=== PATIENT | male | born 1955 | race Caucasian/White ===

== ENCOUNTER → 2018-03-16 | Outpatient (CLI) | payer BC | END | disposition home or self-care (01) | LOC: C.PATHSPEC 17:53 | DX: L85.9 Epidermal thickening, unspecified (principal); K13.21 Leukoplakia of oral mucosa, including tongue ==

== ENCOUNTER 2018-04-14 07:48 | Emergency (ER) | payer BC ==
[~2018-04-14] VITALS: Ht 180.3 cm; Wt 104.6 kg
[2018-04-14 07:51] VITALS: TEMP 37.2; Ht 180.3 cm; Wt 104.6 kg
[2018-04-14] MEDS ORDERED: OXYCODONE HCL IR 5 MG TAB (IMMEDIATE RELEASE) PO STA (08:18)
--- NOTE | 2018-04-14 08:27 | EMERGENCY ROOM VISIT NOTE ---
History First contact with patient: 07:56 Chief Complaint: ARM PAIN Stated Complaint: UPPER RIGHT ARM PAIN History of Present Illness The patient is a 62 year old male who presents to the Emergency Room via private vehicle, by female with complaints of "upper right arm pain". The patient states that he began with pain in the right upper arm Thursday after he was moving chairs. He states that the pain has increased since that time. He now notes that he has difficulty moving his shoulder secondary to the pain. He rates the overall pain numerically is a 6/10. There is no chest pain or shortness of breath. There are no exertional symptoms he is able to walk and go up stairs without any difficulty. He notes that it is strictly in the right shoulder with movements of the arm. He has full strength in the hand and elbow but notes when he goes to lift at the location of the right shoulder he experiences a great deal of pain. He has never had this before. He notes that he is otherwise active. Review of Systems A complete 10-point Review of Systems was discussed with the patient, with pertinent positives and negatives listed in the History of Present Illness. All remaining Review of Systems questions can be considered negative unless otherwise specified. Past Medical/Surgical History No pertinent Family History No pertinent Social History Smoking Status: Never Smoker Pt. lives locally Current/Historical Medications Scheduled Aspirin (Aspirin Chewable), 81 MG PO DAILY Atorvastatin (Lipitor), 1 TAB PO DAILY Ibuprofen-Diphenhydramine Hcl (Advil Pm), 1 TAB PO prn Mometasone Furoate (Nasal) (Mometasone Furoate), 1 SPRAY NA prn Scheduled PRN Oxycodone Ir (Roxicodone Ir), 1 TAB PO Q4H PRN for Pain Miscellaneous Medications Fish Oil (Glasco-3), 1 CAP PO Prednisone (Prednisone), 1 TAB PO Physical Exam Vital Signs Date Time Temp Pulse Resp B/P (MAP) Pulse Ox O2 Delivery O2 Flow Rate FiO2 04/14/18 09:18 73 16 139/85 94 Room Air 04/14/18 07:51 37.2 83 18 134/83 95 Room Air Physical Exam VITAL SIGNS - Vital signs and nursing notes were reviewed. Stable. Afebrile. GENERAL -62-year-old female appearing her stated age who is in no acute distress. Communicates well with provider and answers questions appropriately. SKIN - Without rashes. No meningeal or petechial rash. HEAD - NC/AT. EYES - PERRL with EOMI bilaterally. Sclera anicteric. EARS - No deformities of external structures noted on gross examination bilaterally. NOSE - Midline and without cyanosis. No epistaxis or purulent drainage noted. MOUTH/OROPHARYNX - Without perioral cyanosis. NECK - Neck with FROM. Supple to palpation. No lymphadenopathy noted. No nuchal rigidity. LUNGS - Chest wall symmetric without accessory muscle use, intercostals retractions, or central cyanosis. Normal vesicular breath sounds CTA B/L. No wheezes, rales, or rhonchi appreciated. CARDIAC - RRR with S1/S2. No murmur, rubs, or gallops appreciated. ABDOMEN - Abdominal contour normal without pulsations or visible masses. BS normoactive all four quadrants. No tenderness, palpable masses, hepatosplenomegaly, or ascites noted. EXTREMITIES - No clubbing or peripheral cyanosis. No pretibial edema present. There is minimal tenderness to palpation overlying the right anterior shoulder joint. Full strength and range of motion of the right hand, right wrist and right elbow. Patient has difficulty with abduction at the right shoulder secondary to pain directly into the right shoulder and in the deltoid region. There is no chest pain or shortness of breath. +5/5 strength noted in UE/LE bilaterally. NEUROLOGIC - Cranial nerves II through XII grossly intact. Sensory intact to light touch throughout. PSYCH - A&O, and cooperates fully with examiner. Pt is very pleasant and interacts well with examiner. Medical Decision & Procedures ER Provider Diagnostic Interpretation: R SHOULDER MIN 2 VIEWS ROUTINE HISTORY: 62 years-old Male R shoulder pain acute right shoulder pain COMPARISON: None available TECHNIQUE: 3 views of the right shoulder FINDINGS: Calcific tendinosis about the rotator cuff with calcifications measuring up to 9 mm, possibly within the infraspinatus. Mild glenohumeral and AC joint osteoarthritis. No acute fracture or dislocation. IMPRESSION: 1. Mild degenerative changes of the glenohumeral and AC joints without acute fracture or dislocation. 2. 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 The above report was generated using voice recognition software. It may contain grammatical, syntax or spelling errors. Electronically signed by: Keshav Costa M.D. 04/14/2018 8:33 AM Dictated Date/Time: 04/14/2018 8:28 AM Medications Administered Medications (Trade) Dose Ordered Sig/Daksha Route Start Time Stop Time Status Last Admin Dose Admin Oxycodone HCl (Roxicodone Immediate Rel Tab) 5 mg NOW STAT PO 04/14/18 08:18 04/14/18 08:19 DC 04/14/18 08:36 5 MG Medical Decision Patient was seen and evaluated as above in room B8. Review was performed of nursing notes and vital signs. After obtaining a thorough history and physical examination the above work up was performed he presents to us today with pain in his right shoulder. He is nontoxic on examination. No evidence of [place] or PE. This is localized to the right shoulder itself and is worse with range of motion of this region. He was given ice packs, oxycodone for pain as well as shoulder x-rays were obtained. Results as above. I agree with radiologist findings. I believe he is experiencing calcific tendinitis. I recommend follow -up with orthopedics, gentle range of motion and NSAIDs. Benefit versus risk of providing arm sling was discussed. He would like something for supporting the arm. I informed him that he should not wear this for much time as it will likely worsen his symptoms. He verbalized understanding. He is only to wear it for severe pain. I recommend he take the arm sling every hour to perform gentle range of motion exercises. For severe pain he will be given oxycodone immediate release. Benefit versus risk discussed with the patient. No red flags in the [place] drug monitoring system. The patient was educated upon management, educated upon todays findings/results, educated upon symptoms in which to return, had questions answered prior to discharge, and was discharged home in good condition. In the evaluation and treatment of this patient, the following differential diagnoses were considered: Shoulder Contusion, Shoulder Fracture, Shoulder Dislocation, Thoracic Outlet Syndrome, Adhesive Capsulitis, Rotator Cuff Tear, Proximal Clavicle Head Fracture, Apical Pneumonia, Pneumothorax, Hemothorax, or TB. Impression Primary Impression: Calcific tendinitis of right shoulder Departure Information Dispostion Home / Self-Care Condition GOOD Prescriptions Oxycodone Ir (Roxicodone Ir) 5 Mg Tab 1 TAB PO Q4H Y for Pain, #15 TAB For Initial Treatment Prov: Chava Boggs, RLIEY 04/14/18 Referrals Gualberto Colón M.D. (PCP) Mandeep Kahn D.O. Patient Instructions My [facility] Additional Instructions You have been treated in the Emergency Department for Shoulder Pain. ]You have received pain medicine in the emergency department which impairs your ability to operate a vehicle. It is illegal for you to drive after receiving these medicines. You have been prescribed Oxy IR to be used for pain control. This is a narcotic medication. You cannot drive or consume alcohol while on this medicine. This medicine should only be used for pain that cannot be controlled with over-the- counter pain medicines. For pain control, you can use the following mlyv-[id number]-folewji medicines (if >12 yo): - Regular strength (325mg/tab) Tylenol (acetaminophen) 2 tabs every 4-6 hours as needed. Do not exceed 12 tablets in a 24 hour period. Avoid taking more than 3 grams (3000 mg) of Tylenol per day. This includes any other sources of acetaminophen you may take on a regular basis. - Regular strength (200 mg/tab) Advil (ibuprofen) 1-2 tabs every 4-6 hours as needed. Do not exceed a dose of 3200 mg per day. If this is a recent injury (<24 hrs), ice can be applied to the area of pain for the first 3 days to help decrease pain and inflammation. You have been provided the number for an Orthopaedic Surgeon. You should call this number as soon as possible to establish a follow-up visit from today's Emergency Department visit. You may wear the shoulder sling sparingly. Please be careful that your pain and shoulder condition may worsen by use of this. Continue to perform range of motion exercises several times per day to help prevent the development of a "frozen shoulder". Return to the Emergency Department if your current symptoms worsen despite treatment course outlined above, or if you develop any of the following symptoms : intractable pain despite aforementioned treatment course or new onset of numbness or tingling of the arm.
[2018-04-14] MEDS ORDERED: ATOR-24 PO (08:28)
[2018-04-14] MEDS ORDERED: PRED10PA3 PO (08:28)
[2018-04-14] MEDS ORDERED: ASPCH81X PO (08:28)
[2018-04-14] MEDS ORDERED: IBUP1CAP30 PO (08:28)
[2018-04-14] MEDS ORDERED: OMEG10007 PO (08:28)
[2018-04-14] MEDS ORDERED: MOME6000 (08:28)
--- NOTE | 2018-04-14 08:34 | DIAGNOSTIC IMAGING REPORT ---
R SHOULDER MIN 2 VIEWS ROUTINE HISTORY: 62 years-old Male R shoulder pain acute right shoulder pain COMPARISON: None available TECHNIQUE: 3 views of the right shoulder FINDINGS: Calcific tendinosis about the rotator cuff with calcifications measuring up to 9 mm, possibly within the infraspinatus. Mild glenohumeral and AC joint osteoarthritis. No acute fracture or dislocation. IMPRESSION: 1. Mild degenerative changes of the glenohumeral and AC joints without acute fracture or dislocation. 2. 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 The above report was generated using voice recognition software. It may contain grammatical, syntax or spelling errors. Electronically signed by: Keshav Costa M.D. 04/14/2018 8:33 AM Dictated Date/Time: 04/14/2018 8:28 AM
[2018-04-14 09:18] VITALS: BP 139/85; PULSE 73; O2SAT 94
[2018-04-14] MEDS ORDERED: OXYC-90 PO (09:33)
== END 2018-04-14 09:46 | disposition home or self-care (01) ==
LOC: C.EDB 07:49
DX: M75.31 Calcific tendinitis of right shoulder (principal); Z79.82 Long term (current) use of aspirin; Z79.899 Other long term (current) drug therapy

== ENCOUNTER 2023-04-23 12:41 | Observation (INO) ==
--- NOTE | 2023-04-23 13:29 | Emergency Department Note ---
Impression & Plan Facial cellulitis ED Provider Note HISTORY OF PRESENT ILLNESS: Patient is a 63-year-old male presenting with left submandibular pain and swelling. Patient reports for the last 3 days has been having progressively worsening pain and swelling to the left submandibular region. He has a history of squamous cell carcinoma of the tongue. He denies any measured fevers at home, but reports that today he had subjective fevers and chills. His PCP sent him to the ER for further evaluation. Patient reports it hurts to swallow. Denies any halitosis or foul taste in his mouth. Denies any chest pain or shortness of breath. ROS: as above PHYSICAL EXAM: Constitutional: Patient appears in no acute distress. HENT: Head: Normocephalic and atraumatic. Eyes: EOMI, PERRL Mouth/Throat: Mucous membranes moist. Uvula midline. No elevation of the tongue or protrusion of the tongue. Sublingual region is not swollen or tender to palpation. Neck: Trachea midline. Neck supple. Patient has swelling and tenderness to palpation to the submandibular region. Cardiovascular: RRR, No murmurs, rubs or gallops. Intact distal pulses. Pulmonary/Chest: No respiratory distress. Breath sounds clear and equal bilaterally. No wheezes or rales. Abdominal: Abdomen soft, no tenderness, rebound or guarding. Musculoskeletal: No edema, tenderness or deformity noted. Skin: Warm and dry. No rash, erythema, pallor or cyanosis Psychiatric: Appropriate mood and affect for situation. Neurological: Alert and keenly responsive. CN II-XII grossly intact, moving all extremities equally and fully. MDM: - Vitals signs stable. - History obtained via patient. Patient presents with left submandibular pain and swelling. Patient reports progressively worsening pain and swelling to the left submandibular region over the last 3 days. Denies any measured fevers at home, but reports subjective fevers and chills. He has a history of squamous cell carcinoma of the tongue. He is not on any active chemo. Patient reports it hurts to swallow. - Chronic conditions affecting care: DM-2; HLD; SCC of tongue - Differential diagnoses include, but are not limited to: [place]'s angina; cellulitis; peritonsillar abscess - Order placed for continuous cardiac monitoring. At this time, monitor showed rate of 90 bpm with normal sinus rhythm, per my interpretation. - External medical records reviewed. - Laboratory workup interpreted by myself showed leukocytosis (WBC 13.03); slight hyponatremia (Na 133); elevated creatinine (cr 1.49) - CT soft tissue neck showed moderate inferior left facial and upper neck inflammation around the left hemimandible. This extends into the left floor of the mouth. Findings consistent with cellulitis. - Patient given 3g IV unasyn. - Discussion was had with social media content manager about patient's case and need for admission - Hospitalist consulted for admission - Patient admitted to [facility] for further evaluation and management. ASSESSMENT AND PLAN: Diagnosis: facial cellulitis Plan: admit Past Med/Surg History Medical History Borderline diabetes History of prostate cancer Hyperlipidemia Squamous cell carcinoma of tongue Surgical History History of anesthesia reaction History of biopsy History of colonoscopy History of hernia repair History of prostatectomy (03/26/11) History of tonsillectomy History of tooth extraction Family History Grandfather (Maternal) Family hx of colon cancer Other No family history of adverse response to anesthesia No family history of bleeding disorder Social History Smoking Status: Never smoker Second Hand Exposure: No; Do You Dip or Chew Tobacco: No; Hx Alcohol Use: Yes Alcohol type: beer and wine Hx Substance Use: No Preferred Language: Citizen Of [place] Communication Ability: Effective Interactive Project Manager Required: No Beliefs That Will Affect Care: None Current Living Situation: Family Current Living Situation Comment: AND 2 CHILDREN current occupational status: retired Feels Safe at Home: Yes Assistive Devices: Glasses Allergies Allergies Allergy/AdvReac Type Severity Reaction Status Date / Time No Known Drug Allergies Allergy Verified 11/18/22 13:52 Home Meds Home Medications Medication Instructions Recorded Confirmed atorvastatin 20 mg tablet 20 mg PO QPM 09/22/22 04/23/23 acetaminophen 500 mg tablet 1,000 mg PO Q6H PRN Pain 04/23/23 04/23/23 (Tylenol Extra Strength) omega-3 fatty acids 1,000 mg 1,000 mg PO DAILY 04/23/23 04/23/23 capsule Previous Rx's Medication Instructions Recorded mometasone 0.1 % topical cream 1 applic topical DAILY PRN 03/09/20 allergic reaction #15 grams Results & Data (ED) Vital Signs Vital Signs - 24 hr 04/23/23 12:42 04/23/23 14:49 04/23/23 16:50 Temperature 36.6 C Temperature Source Temporal Artery Scan Pulse Rate [Right Finger] 89 90 Respiratory Rate 20 17 18 Respiratory Effort / Characteristics Non-Labored Spontaneous Non-Labored Non-Labored Respiratory Depth Normal Normal Normal Blood Pressure 121/79 Blood Pressure [Right Arm] 150/92 H 139/88 Blood Pressure Mean 93 Blood Pressure Mean [Right Arm] 111 105 Pulse Oximetry 93 93 92 Oxygen Delivery Method Room Air Room Air Room Air Sepsis Recent Fever Within 48 Hours No Sepsis New/Unexplained Change in Mental Status No Sepsis Action Taken by Nursing No Action Required Laboratory Data 04/23/23 12:58 04/23/23 12:58 Lab Results 04/23/23 04/23/23 Range/Units 12:58 12:58 WBC 13.03 H (4.8-10.8) K/ul RBC 5.53 (4.70-6.10) M/uL Hgb 15.6 (14.0-18.0) g/dl Hct 46.8 (42.0-52.0) % MCV 84.6 (80.0-100.0) fL MCH 28.2 (25.0-34.0) pg MCHC 33.3 (32.0-36.0) g/dL RDW Std Deviation 39.3 (36.4-46.3) fL RDW Coeff of Gerald 12.7 (11.5-14.5) % Plt Count 227 (130-400) K/uL MPV 9.0 L (9.4-12.4) fL Immature Gran % (Auto) 0.4 % Neut % (Auto) 80.2 % Lymph % (Auto) 9.7 % [place] % (Auto) 9.2 % Eos % (Auto) 0.1 % Baso % (Auto) 0.4 % Neut # (Auto) 10.46 H (1.40-6.50) K/uL Lymph # (Auto) 1.26 (1.20-3.40) K/uL [place] # (Auto) 1.20 H (0.11-0.59) K/uL Eos # (Auto) 0.01 (0.00-0.50) K/uL Baso # (Auto) 0.05 (0.00-0.20) K/uL Immature Gran # (Auto) 0.05 (0.01-0.20) K/uL Sodium 133 L (136-145) mmol/L Potassium 4.1 (3.5-5.1) mmol/L Chloride 97 L (98-107) mmol/L Carbon Dioxide 26 (21-32) mmol/L Anion Gap 10 (3-11) BUN 20 (6-23) mg/dl Creatinine 1.49 H (0.6-1.4) mg/dl Est Cr Clr Drug Dosing 57.2 ml/min Est GFR ( Amer) 55.5 ml/min Est GFR (Non-Af Amer) 47.9 ml/min BUN/Creatinine Ratio 13.4 (10-20) Glucose 122 H (70-99(Fasting)) mg/dl Calcium 10.2 (8.6-10.3) mg/dl Total Bilirubin 1.3 H (0.2-1.0) mg/dl AST 14 (13-39) U/L ALT 14 (7-52) U/L Alkaline Phosphatase 56 (34-104) U/L Total Protein 8.7 H (6.0-8.3) gm/dl Albumin 5.0 (3.4-5.0) gm/dl Globulin 3.7 (2.5-4.0) gm/dl Albumin/Globulin Ratio 1.4 (0.9-2) Administered Medications Sodium Chloride (Nss 1000ml) 1,000 mls @ 999 mls/hr IV .Q1H1M ONE Stop: 04/23/23 17:44 Last Admin: 04/23/23 16:48 Dose: 999 mls/hr Documented By: [facility] Discontinued Medications Ampicillin Sodium/Sulbactam Sodium 3,000 mg/ Sodium Chloride 108 mls @ 216 mls/hr IV NOW ONE Stop: 04/23/23 16:59 Last Admin: 04/23/23 16:48 Dose: 216 mls/hr Documented By: [facility] Ioversol (Optiray 320 100ml) 92 ml IV ONCE ONE Stop: 04/23/23 14:43 Last Admin: 04/23/23 14:42 Dose: 92 ml Documented By: Imaging Data Radiologist's Impression: Soft Tissue Neck CT 04/23/23 13:26 CT OF THE NECK WITH IV CONTRAST CLINICAL HISTORY: Left submandibular swelling and pain. History of squamous cell carcinoma of the tongue. COMPARISON STUDY: Neck CT November 19, 2022. TECHNIQUE: Following IV administration of 92 mL of Optiray, helical axial images of the neck were obtained. Sagittal and coronal reconstructions were viewed. Automated exposure control was utilized for the study. A dose lowering technique was utilized adhering to the principles of ALARA. FINDINGS: Visualized portions of the intracranial contents are unremarkable. Mastoid air cells are clear. There is moderate polypoid thickening of the right maxillary and ethmoid sinuses, similar to prior CT. The parotid and right submandibular glands are unremarkable. There is moderate stranding consistent with inflammation centered on the left hemimandible. This is adjacent to the left submandibular gland however there are no definitive findings to suggest sialoadenitis. No calculi are identified within the submandibular duct. There is a tiny calcification within the right submandibular gland. There is associated thickening of the left platysma. There is no soft tissue gas. Visualized porti ons of the airway are patent. Inflammation extends into the left floor of the mouth. There is mild asymmetric enhancement within the left floor of the mouth on axial image 163 of 385. No well-defined mass is identified. No definite odontogenic source is identified. Epiglottis is normal. There is no prevertebral edema. Lung apices are unremarkable. Major vasculature of the neck is patent. There are few prominent hyperemic left level 1 and 2 lymph nodes which are likely reactive. IMPRESSION: 1. Moderate inferior left facial and upper neck inflammation centered on the left hemimandible. This extends into the left floor of the mouth. This favors an infectious process with cellulitis however the etiology is not clear on this examination. Although difficult to completely exclude, sialoadenitis of the left submandibular gland is considered less likely. No fluid collection to suggest abscess. Visualized portions of the airway patent. 2. Several prominent hyperemic left level 1 and 2 lymph nodes which are likely r eactive. No evidence for recurrent malignancy however a follow-up neck CT in one to 2 months to ensure resolution is recommended. ACT 112: Negative or not required by law. Electronically signed by: Adalberto Singh M.D. 04/23/2023 3:18 PM Discharge Plan Visit Data Chief Complaint: Referred by Doctor Stated Complaint: DR JAMES PERDOMO ED Provider: Morena Campos Discharge Problem: Facial cellulitis Forms Stand Alone Forms: [facility] Prescriptions Prescriptions: No Action mometasone 0.1 % cream 1 applic TOP DAILY PRN (Reason: allergic reaction) Qty: 15 0RF Rx Instructions: Apply to affected ear once daily as needed for itching atorvastatin 20 mg Tablet 20 mg PO QPM omega-3 fatty acids [Fish Oil Concentrate] 1,000 mg Capsule 1,000 mg PO DAILY acetaminophen [Tylenol Extra Strength] 500 mg Tablet 1,000 mg PO Q6H PRN (Reason: Pain) Referrals Referrals: Jagruti Isidro [Primary Care Provider] -
[2023-04-23 13:43] LABS: Basophils # (auto) 0.05 K/uL (0.00-0.20); Basophils % (auto) 0.4 %; Eosinophils # (auto) 0.01 K/uL (0.00-0.50); Eosinophils % (auto) 0.1 %; Hematocrit (blood only) 46.8 % (42.0-52.0); Hemoglobin 15.6 g/dl (14.0-18.0); Immature Granulocytes # (auto) 0.05 K/uL (0.01-0.20); Immature Granulocytes % (auto) 0.4 %; Lymphocytes # (auto) 1.26 K/uL (1.20-3.40); Lymphocytes % (auto) 9.7 %; Mean Corpuscular Hemoglobin 28.2 pg (25.0-34.0); Mean Corpuscular Hgb Conc 33.3 g/dL (32.0-36.0); Mean Corpuscular Volume 84.6 fL (80.0-100.0); Monocytes % (auto) 9.2 %; Neutrophils # (auto) 10.46 K/uL (1.40-6.50); Neutrophils % (auto) 80.2 %; Platelet Count 227 K/uL (130-400); RDW Coefficient of Variation 12.7 % (11.5-14.5); RDW Standard Deviation 39.3 fL (36.4-46.3); Red Blood Count 5.53 M/uL (4.70-6.10); White Blood Count 13.03 K/ul (4.8-10.8)
[2023-04-23 14:08] LABS: Albumin Globulin Ratio 1.4 (0.9-2); BUN Creatinine Ratio 13.4 (10-20); Bilirubin,Total 1.3 mg/dl (0.2-1.0); Calcium 10.2 mg/dl (8.6-10.3); Creatinine Clr Calc Pharmacy 57.2 ml/min; Est GFR (African American) 55.5 ml/min; Est GFR (Non-African American) 47.9 ml/min; Globulin 3.7 gm/dl (2.5-4.0); Potassium 4.1 mmol/L (3.5-5.1); Total Protein 8.7 gm/dl (6.0-8.3)
[2023-04-23] MEDS ORDERED: OPTIRAY 320 100ml IV ONE (14:42)
--- NOTE | 2023-04-23 15:19 | CT Scan Report ---
CT OF THE NECK WITH IV CONTRAST CLINICAL HISTORY: Left submandibular swelling and pain. History of squamous cell carcinoma of the ivis [place]. COMPARISON STUDY: Neck CT November 19, 2022. TECHNIQUE: Following IV administration of 92 mL of Optiray, helical axial images of the neck were ob tained. Sagittal and coronal reconstructions were viewed. Automated exposure control was utilized f or the study. A dose lowering technique was utilized adhering to the principles of ALARA. FINDINGS: Visualized portions of the intracranial contents are unremarkable. Mastoid air cells are c lear. There is moderate polypoid thickening of the right maxillary and ethmoid sinuses, similar to pr ior CT. The parotid and right submandibular glands are unremarkable. There is moderate stranding cons istent with inflammation centered on the left hemimandible. This is adjacent to the left submandibula r gland however there are no definitive findings to suggest sialoadenitis. No calculi are identified within the submandibular duct. There is a tiny calcification within the right submandibular gland. Th ere is associated thickening of the left platysma. There is no soft tissue gas. Visualized portions o f the airway are patent. Inflammation extends into the left floor of the mouth. There is mild asymmet bertha enhancement within the left floor of the mouth on axial image 163 of 385. No well-defined mass is identified. No definite odontogenic source is identified. Epiglottis is normal. There is no preverte bral edema. Lung apices are unremarkable. Major vasculature of the neck is patent. There are few prom inent hyperemic left level 1 and 2 lymph nodes which are likely reactive. IMPRESSION: 1. Moderate inferior left facial and upper neck inflammation centered on the left hemimandible. This extends into the left floor of the mouth. This favors an infectious process with cellulitis however t he etiology is not clear on this examination. Although difficult to completely exclude, sialoadenitis of the left submandibular gland is considered less likely. No fluid collection to suggest abscess. V isualized portions of the airway patent. 2. Several prominent hyperemic left level 1 and 2 lymph nodes which are likely reactive. No evidence for recurrent malignancy however a follow-up neck CT in one to 2 months to ensure resolution is recom mended. ACT 112: Negative or not required by law. Electronically signed by: Adalberto Singh M.D. 04/23/2023 3:18 PM
[2023-04-23] MEDS ORDERED: AMPICILLIN/SULBACTAM SOD 1,500 MG in 0.9 % SODIUM CHLORIDE 100 ML IV STA (15:49)
[2023-04-23] MEDS ORDERED: AMPICILLIN/SULBACTAM SOD 3,000 MG in 0.9 % SODIUM CHLORIDE 100 ML IV ONE (16:30)
[2023-04-23] MEDS ORDERED: SODIUM CHLORIDE 0.9% 1,000 ML IV ONE (16:44)
--- NOTE | 2023-04-23 18:48 | History & Physical Report ---
Date of Service April 23, 2023 Assessment & Plan (1) Facial cellulitis: Plan: Patient presents to the hospital with complaints of sore throat odynophagia. CT scan of the soft tissue neck showed evidence of moderate inferior left facial and upper neck inflammation consistent with cellulitis. No evidence of drainable abscess. Has been started on IV Unasyn, will monitor Continue pain management. 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 Patient also complained of fever and chills which started on the day of presentation and this made him come to the hospital. Here in the emergency department WBC was 13,[address] scan of the soft tissue neck showed evidence of a moderate inferior left facial and upper neck inflammation around the left hemimandible findings consistent with cellulitis. No evidence of drainable abscess. Blood cultures were obtained, patient was started on empiric IV Unasyn and will be admitted to the hospital further management. Allergies Allergy/AdvReac Type Severity Reaction Status Date / Time No Known Drug Allergies Allergy Verified 11/18/22 13:52 Home Medications Medication Instructions Recorded Confirmed Type mometasone 0.1 % topical cream 1 applic topical DAILY PRN 03/09/20 04/23/23 Rx allergic reaction #15 grams atorvastatin 20 mg tablet 20 mg PO QPM 09/22/22 04/23/23 History acetaminophen 500 mg tablet 1,000 mg PO Q6H PRN Pain 04/23/23 04/23/23 History (Tylenol Extra Strength) omega-3 fatty acids 1,000 mg 1,000 mg PO DAILY 04/23/23 04/23/23 History capsule Past Med/Surg History Medical History Borderline diabetes History of prostate cancer Hyperlipidemia Squamous cell carcinoma of tongue Surgical History History of anesthesia reaction History of biopsy History of colonoscopy History of hernia repair History of prostatectomy (03/26/11) History of tonsillectomy History of tooth extraction Family History Grandfather (Maternal) Family hx of colon cancer Other No family history of adverse response to anesthesia No family history of bleeding disorder Social History Smoking Status: Never smoker Second Hand Exposure: No; Do You Dip or Chew Tobacco: No; Hx Alcohol Use: Yes Alcohol type: beer and wine Hx Substance Use: No Preferred Language: Armenian Communication Ability: Effective Smutter Required: No Beliefs That Will Affect Care: None Current Living Situation: Family Current Living Situation Comment: AND 2 CHILDREN current occupational status: retired Feels Safe at Home: Yes Assistive Devices: Glasses Review of Systems Review of Systems: All systems reviewed are negative, apart from the ones contained in the history. Physical Exam Physical Exam: The patient is awake, alert and oriented 3, well developed and well nourished, normocephalic and atraumatic, lying in bed and in no acute distress. HEENT--PERRL, EOMI, mucous membranes and oropharynx mildly dry Neck--supple. No JVD. No bruits. Thyroid normal, trachea midline, no adenopathy. Heart--normal S1 and S2. No murmurs, rubs or gallops. Lungs--clear bilaterally, no respiratory distress, no accessory muscle use. Abdomen--normal bowel sounds and soft. Mild epigastric and left sided abdominal pain Extremities--no cyanosis or clubbing. No edema. Dermatologic--normal skin turgor, normal color, no abnormal lymph nodes, no rash. Neurologic--cranial nerves II through XII grossly intact. Rheumatologic--normal range of motion. Psychiatric--normal affect. Results & Data Results & Data Vital Signs (Past 12 Hours) Vital Signs Temp Pulse Resp BP BP Pulse Ox O2 Del Method 04/23/23 18:17 88 18 149/94 H 92 Room Air 04/23/23 16:50 90 18 139/88 92 Room Air 04/23/23 14:49 89 17 150/92 H 93 Room Air 04/23/23 12:42 97.9 F 20 121/79 93 Room Air PG Care Time/CCT Total # of Minutes Spent Total Time Spent with Patient: Total time spent is greater than 50% in coordination of care (as documented) at patient's floor/unit and/or counseling patient: Coding Level of Care Code 80041 INT INP/OBS CARE 3/75MIN Diagnoses Facial cellulitis L03.211 Prostate cancer C61 Squamous cell carcinoma of tongue C02.9 Time Spent (min) 75
[2023-04-23] MEDS ORDERED: ATORVASTATIN 20 MG TAB PO SCH (22:44)
[2023-04-23] MEDS ORDERED: ACETAMINOPHEN 500 MG TAB PO PRN (22:44)
[2023-04-23] MEDS: AMPICILLIN/SULBACTAM SOD 3,000 MG in 0.9 % SODIUM CHLORIDE 100 ML IV SCH (23:34)
[2023-04-24] MEDS: AMPICILLIN/SULBACTAM SOD 3,000 MG in 0.9 % SODIUM CHLORIDE 100 ML IV SCH ×2 (06:02→11:40)
[2023-04-24 07:56] LABS: Hemoglobin 13.7 g/dl (14.0-18.0); Mean Corpuscular Hemoglobin 28.2 pg (25.0-34.0); Mean Corpuscular Hgb Conc 33.4 g/dL (32.0-36.0); Mean Corpuscular Volume 84.5 fL (80.0-100.0); Mean Platelet Volume 8.8 fL (9.4-12.4); Platelet Count 176 K/uL (130-400); RDW Coefficient of Variation 12.9 % (11.5-14.5); RDW Standard Deviation 39.8 fL (36.4-46.3); Red Blood Count 4.85 M/uL (4.70-6.10); White Blood Count 10.06 K/ul (4.8-10.8)
[2023-04-24] MEDS ORDERED: OMEGA-3 (PURIFIED FISH OIL) 1 GM CAP PO SCH (09:00)
--- NOTE | 2023-04-24 14:07 | Discharge Summary ---
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 Patient also complained of fever and chills which started on the day of presentation and this made him come to the hospital. Here in the emergency department WBC was 13,[address] scan of the soft tissue neck showed evidence of a moderate inferior left facial and upper neck inflammation around the left hemimandible findings consistent with cellulitis. No evidence of drainable abscess. Blood cultures were obtained, patient was started on empiric IV Unasyn and will be admitted to the hospital further management. Principal Diagnosis facial cellulitis Discharge Exam The patient is awake, alert and oriented 3, well developed and well nourished, normocephalic and atraumatic, lying in bed and in no acute distress. HEENT--PERRL, EOMI, mucous membranes and oropharynx mildly dry Neck--supple. No JVD. No bruits. Thyroid normal, trachea midline, no adenopathy. Heart--normal S1 and S2. No murmurs, rubs or gallops. Lungs--clear bilaterally, no respiratory distress, no accessory muscle use. Abdomen--normal bowel sounds and soft. Mild epigastric and left sided abdominal pain Extremities--no cyanosis or clubbing. No edema. Dermatologic--normal skin turgor, normal color, no abnormal lymph nodes, no rash. Neurologic--cranial nerves II through XII grossly intact. Rheumatologic--normal range of motion. Psychiatric--normal affect. Discharge Data Allergies Allergy/AdvReac Type Severity Reaction Status Date / Time No Known Drug Allergies Allergy Verified 11/18/22 13:52 Consultations 04/23/23 16:59 ED Decision to Admit Stat Ordered Studies 04/23/23 13:26 CT soft tissue neck w con Stat Hospital Course (1) Facial cellulitis: Patient presents to the hospital with complaints of sore throat odynophagia. CT scan of the soft tissue neck showed evidence of moderate inferior left facial and upper neck inflammation consistent with cellulitis. No evidence of drainable abscess. Has been started on IV Unasyn, He said his symptoms improved very much, wants to be discharged will dd/c him on PO Augmentin for 7 days (2) Prostate cancer: Status post radical prostatectomy (3) Squamous cell carcinoma of tongue: Status post right partial glossectomy Follows up with ENT outpatient Plan Admit to the hospital Full code DVT prophylaxis SCDs Total Time Total Time Spent Total Time Spent (In Minutes): 35 Discharge Plan Discharge Items Patient Disposition: Home - Self-Care Reason For Visit: SUBMANDIBULAR CELLULITIS Discharge Diagnosis: submandibular cellulitis Activity: Resume your previous activity Non-emergency contact: Primary Care Provider Call non-emergency contact if: you have any medication questions and your symptoms worsen Follow-up/Referrals: Jagruti Isidro [Primary Care Provider] - 05/01/23 7:45 am (APPT WITH DR CORNELIUS; [address] [facility], [address], [facility] [address]. PHONE [phone].) Diet: Regular Addtl Attending Provider Instructions: please follow up with your PCP and oncologist Pending Studies at Discharge: No Stand-Alone Forms: [facility] Cess[facility] Medications and DC Order Prescriptions: New amoxicillin-pot clavulanate [Augmentin XR] 1,000-62.5 mg tablet extended release 12 hr 1 tab PO BID 7 Days Qty: 14 0RF Continued mometasone 0.1 % cream 1 applic TOP DAILY PRN (Reason: allergic reaction) Qty: 15 0RF Rx Instructions: Apply to affected ear once daily as needed for itching atorvastatin 20 mg Tablet 20 mg PO QPM omega-3 fatty acids 1,000 mg Capsule 1,000 mg PO DAILY acetaminophen [Tylenol Extra Strength] 500 mg Tablet 1,000 mg PO Q6H PRN (Reason: Pain) Discharge Orders: Discharge Order (Routine); Ordered 04/24/23 Ordered By: Jose Ramírez/Other Patient Handouts: ED Cellulitis, Facial Admission Data Admit Date/Time: 04/23/23 18:03 Attending Provider: Jose Barrios Admit Provider: Jose Barrios Primary Care Provider: Jagruti Isidro Other Providers: Thuan Jett Other Interventions: Discharge Summary Assessment (RN) Last Done: 04/24/23 11:54 Coding Level of Care Code 17042 INP/OBS DISCH >30 MIN Diagnoses Facial cellulitis L03.211 Prostate cancer C61 Squamous cell carcinoma of tongue C02.9 Time Spent (min) 35
== END 2023-04-24 13:25 | disposition home or self-care (01) | DRG 159 ==
LOC: ED 12:41 → 3N 18:03 → INTOOBSV 18:03 → 3N 22:11